=== PATIENT | female | born 1950 | race Caucasian/White ===

== ENCOUNTER 2022-05-28 12:41 | Outpatient (CLI) | payer MEDICARE, OTHER | END 2022-05-28 12:42 | disposition home or self-care (01) | LOC: CSHCP 12:41 | PROVIDERS: ATTEND Internal Medicine | DX: R06.09 Other forms of dyspnea (principal) | CPT/HCPCS: 94060; 94726; 94729; 94760 ==

== ENCOUNTER 2023-02-11 10:23 | Outpatient (CLI) | payer MEDICARE, OTHER | END 2023-02-11 10:24 | disposition home or self-care (01) | LOC: CSHCP 10:23 | PROVIDERS: ATTEND Internal Medicine | DX: G47.33 Obstructive sleep apnea (adult) (pediatric) (principal); R06.09 Other forms of dyspnea | CPT/HCPCS: 94618 ==